=== PATIENT | female | born 1995 | race Caucasian/White ===

== ENCOUNTER 2017-11-23 21:36 | Emergency (ER) | payer OTHER ==
[~2017-11-23] VITALS: Ht 157.5 cm; Wt 83.6 kg
[~2017-11-23 21:36] MED LIST: AVIDOXY100 MG PO; MOTRIN800 MG PO; PRENATAL TABLE1 EAC3 PO; ZOFRAN ODT4 MG PO
[2017-11-24 03:40] LABS: HEMOGLOBIN 12.2 G/DL (11.9-15.5); MCH 28.4 PG (29.0-34.0); MCHC 33.9 G/DL (30.0-36.0); MCV 83.7 FL (83-99); PLATELET COUNT 207 K/uL (156-360); RBC DIS.WIDTH-CV 13.3 % (11.8-14.6); RBC DIS.WIDTH-SD 40.7 % (39-53); WHITE BLOOD COUNT 9.6 K/uL (4.1-10.2)
[2017-11-24 03:58] LABS: CHLORIDE 107 mEq/L (99-109); POTASSIUM 3.3 mEq/L (3.7-5.4); SODIUM 138 mEq/L (136-147)
[2017-11-24 04:00] LABS: GLUCOSE 86 mg/dL (70-99)
[2017-11-24 04:03] LABS: MONOSPOT (MONONUCLEOSIS SEROL) POSITIVE
[2017-11-24 04:04] LABS: CREATININE 0.6 mg/dL (0.6-1.3); GFR ESTIMATE (CALCULATED) > 59 mL/min/; UREA NITROGEN (BUN) 9 mg/dL (9-23)
[2017-11-24 06:01] VITALS: BP 123/78
== END 2017-11-24 06:08 | disposition home or self-care (01) ==
LOC: EME 21:36
PROVIDERS: Physician Assistant
DX: O98.511 Other viral diseases complicating pregnancy, first trimester (principal); B27.90 Infectious mononucleosis, unspecified without complication; O99.511 Diseases of the respiratory system complicating pregnancy, first trimester; J02.0 Streptococcal pharyngitis; O26.891 Other specified pregnancy related conditions, first trimester; R22.1 Localized swelling, mass and lump, neck; Z3A.01 Less than 8 weeks gestation of pregnancy
CPT/HCPCS: 80048; 85027; 86308; 99281; 99285; J1100; J7030